=== PATIENT | male | born 1950 | race Caucasian/White ===

== ENCOUNTER 2016-09-23 08:49 | Emergency (ER) | payer OTHER ==
[2016-09-23 11:12] LABS: HEMOGLOBIN 17.3 gm/dl (14.0-17.5); RED BLOOD COUNT 5.38 M/UL (4.20-5.50); WHITE BLOOD COUNT 7.6 K/UL (4.5-11.0)
[2016-09-23 11:30] LABS: BUN/CREATININE RATIO 21 (0-10)
== END 2016-09-23 14:10 | disposition home or self-care (01) ==
LOC: ER1 08:49
PROVIDERS: Emergency Medicine
DX: M51.34 Other intervertebral disc degeneration, thoracic region (principal); I71.9 Aortic aneurysm of unspecified site, without rupture; F17.200 Nicotine dependence, unspecified, uncomplicated
CPT/HCPCS: 36415; 71101; 72128; 80053; 84484; 85025; 93005; 99284; J1956; J2270; J2405

== ENCOUNTER 2020-09-29 16:34 | Observation (INO) | payer MEDICARE, OTHER ==
[~2020-09-29] VITALS: Ht 177.8 cm; Wt 79.4 kg
[2020-09-29 19:16] LABS: HEMOGLOBIN 15.5 gm/dl (14.0-17.5); RED BLOOD COUNT 4.83 M/UL (4.20-5.50); WHITE BLOOD COUNT 7.8 K/UL (4.5-11.0)
[2020-09-29 19:38] LABS: BUN/CREATININE RATIO 33 (0-10)
[2020-09-30 05:02] LABS: BUN/CREATININE RATIO 39 (0-10)
[2020-09-30] MEDS ORDERED: PROTONIX40 MG PO (13:33)
[2020-09-30] MEDS ORDERED: ASPIRIN EC81 MG PO (13:33)
[2020-09-30] MEDS ORDERED: ATORVASTATIN CA20 MG PO (13:33)
--- NOTE | 2020-09-30 14:39 | NUR ---
cardio has cleared pt and he can be dcd , pt to follow up with them in 2 mths family and aware , no c/o from pt noted
== END 2020-09-30 14:37 | disposition home or self-care (01) ==
LOC: ER1 16:34 → CDU 21:25 → MED SURG 4 09-30 12:13
PROVIDERS: Physician Assistant; ADMIT Internal Medicine
DX: R07.89 Other chest pain (principal); N17.9 Acute kidney failure, unspecified; I25.10 Atherosclerotic heart disease of native coronary artery without angina pectoris; I25.2 Old myocardial infarction; I10 Essential (primary) hypertension; E78.5 Hyperlipidemia, unspecified; J44.9 Chronic obstructive pulmonary disease, unspecified; Z95.5 Presence of coronary angioplasty implant and graft; Z20.822 Contact with and (suspected) exposure to COVID-19; Z87.891 Personal history of nicotine dependence; Z86.79 Personal history of other diseases of the circulatory system; Z95.828 Presence of other vascular implants and grafts
CPT/HCPCS: ECHO; 71045; 78452; 80048; 80053; 82550; 82553; 83874; 83880; 84484; 85025; 85610; 85730; 93005; 93017; 93306; 96372; 99285; A9502; G0378; J1650; J2785; J7030; U0002

== ENCOUNTER 2020-11-18 05:00 | Inpatient (IN) | payer MEDICARE, OTHER ==
[~2020-11-18] VITALS: Ht 177.8 cm; Wt 77.1 kg
[~2020-11-18 05:00] MED LIST: ASPIRIN EC81 MG PO; ATORVASTATIN CA20 MG PO; PROTONIX40 MG PO
[2020-11-18 05:34] LABS: HEMOGLOBIN 14.5 gm/dl (14.0-17.5); RED BLOOD COUNT 4.53 M/UL (4.20-5.50); WHITE BLOOD COUNT 10.5 K/UL (4.5-11.0)
[2020-11-18 05:53] LABS: BUN/CREATININE RATIO 30 (0-10)
[2020-11-18] MEDS ORDERED: BREO ELLIPTA 21 EACH INH (09:46)
[2020-11-18] MEDS ORDERED: CRESTOR20 MG PO (09:47)
[2020-11-18] MEDS ORDERED: TRAMADOL HCL50 MG PO (09:47)
[2020-11-18] MEDS ORDERED: VALSARTAN80 MG PO (09:48)
[2020-11-18] MEDS ORDERED: ELAVIL 50 MG TA50 MG PO (09:48)
[2020-11-18] MEDS ORDERED: OXYCODONE-ACET1 EACH PO (09:49)
[2020-11-18] MEDS ORDERED: ADVIL200 M1 PO (09:51)
[2020-11-19 03:49] LABS: HEMOGLOBIN 13.9 gm/dl (14.0-17.5); RED BLOOD COUNT 4.35 M/UL (4.20-5.50)
[2020-11-19 03:52] LABS: WHITE BLOOD COUNT 13.4 K/UL (4.5-11.0)
[2020-11-19 04:04] LABS: BUN/CREATININE RATIO 22 (0-10)
[2020-11-20 07:39] LABS: HEMOGLOBIN 13.2 gm/dl (14.0-17.5); RED BLOOD COUNT 4.13 M/UL (4.20-5.50)
[2020-11-20 07:40] LABS: WHITE BLOOD COUNT 8.8 K/UL (4.5-11.0)
[2020-11-20 08:04] LABS: BUN/CREATININE RATIO 21 (0-10)
[2020-11-21 05:48] LABS: HEMOGLOBIN 12.6 gm/dl (14.0-17.5); RED BLOOD COUNT 4.08 M/UL (4.20-5.50)
[2020-11-21 06:06] LABS: BUN/CREATININE RATIO 20 (0-10)
[2020-11-22 07:08] LABS: HEMOGLOBIN 11.7 gm/dl (14.0-17.5); RED BLOOD COUNT 3.84 M/UL (4.20-5.50); WHITE BLOOD COUNT 6.4 K/UL (4.5-11.0)
[2020-11-22 07:20] LABS: BUN/CREATININE RATIO 15 (0-10)
[2020-11-23 05:58] LABS: HEMOGLOBIN 11.7 gm/dl (14.0-17.5); RED BLOOD COUNT 3.89 M/UL (4.20-5.50)
[2020-11-23 06:22] LABS: BUN/CREATININE RATIO 10 (0-10)
[2020-11-23] MEDS ORDERED: LOPRESSOR 25 MG25 MG PO (09:43)
== END 2020-11-23 11:01 | disposition home or self-care (01) | DRG 329 ==
LOC: ER1 05:00 → CDU 08:32 → M/S 15:28
PROVIDERS: Physician Assistant Medical; Surgery; ADMIT Internal Medicine
PROC: 0DBH0ZZ Excision of Cecum, Open Approach (ICD-10-PCS; principal; 2020-11-19 19:54)
DX: K63.9 Disease of intestine, unspecified (principal); K63.1 Perforation of intestine (nontraumatic); N17.9 Acute kidney failure, unspecified; K92.2 Gastrointestinal hemorrhage, unspecified; K76.9 Liver disease, unspecified; Z20.822 Contact with and (suspected) exposure to COVID-19; I25.10 Atherosclerotic heart disease of native coronary artery without angina pectoris; J44.9 Chronic obstructive pulmonary disease, unspecified; E86.0 Dehydration; E86.1 Hypovolemia; I73.9 Peripheral vascular disease, unspecified; R00.0 Tachycardia, unspecified; E78.5 Hyperlipidemia, unspecified; M54.9 Dorsalgia, unspecified; I12.9 Hypertensive chronic kidney disease with stage 1 through stage 4 chronic kidney disease, or unspecified chronic kidney disease; N18.30 Chronic kidney disease, stage 3 unspecified; G89.29 Other chronic pain; Z79.82 Long term (current) use of aspirin; Z87.891 Personal history of nicotine dependence; Z95.1 Presence of aortocoronary bypass graft; Z79.899 Other long term (current) drug therapy; Z98.890 Other specified postprocedural states; Z82.49 Family history of ischemic heart disease and other diseases of the circulatory system
CPT/HCPCS: 36415; 80048; 80053; 81001; 82378; 82550; 82553; 83605; 83690; 83735; 83874; 84484; 85025; 85027; 87040; 93005; 94760; 96374; 96375; 99285; J1100; J1170; J1956; J2001; J2270; J2370; J2405; J2543; J2704; J2710; J3010; J7030; J7040; J7120; Q9967; U0002